=== PATIENT | male | born 1965 | race Caucasian/White ===

== ENCOUNTER 2018-12-08 12:49 | Emergency (ER) | payer OTHER ==
[~2018-12-08] VITALS: Ht 177.8 cm; Wt 92.1 kg
[2018-12-08 17:08] VITALS: BP 111/54
== END 2018-12-08 17:09 | disposition home or self-care (01) ==
LOC: ER 12:49
DX: S16.1XXA Strain of muscle, fascia and tendon at neck level, initial encounter (principal); G89.29 Other chronic pain; E03.9 Hypothyroidism, unspecified; Z87.891 Personal history of nicotine dependence; Z88.0 Allergy status to penicillin; Z88.2 Allergy status to sulfonamides; X58.XXXA Exposure to other specified factors, initial encounter; Y93.89 Activity, other specified; Y92.89 Other specified places as the place of occurrence of the external cause; Y99.8 Other external cause status

== ENCOUNTER 2019-01-30 02:03 | Emergency (ER) | payer OTHER ==
[~2019-01-30] VITALS: Ht 177.8 cm; Wt 97.5 kg
[2019-01-30] MEDS ORDERED: TYLENOL EXTRA500 MG PO (02:38)
[2019-01-30] MEDS ORDERED: ASPIR 8181 MG PO (02:38)
[2019-01-30] MEDS ORDERED: CELEXA10 MG PO (02:40)
[2019-01-30] MEDS ORDERED: BACLOFEN 10MG T10 MG PO (02:40)
[2019-01-30] MEDS ORDERED: BISACODYL SUPP10 MG RECTAL (02:40)
[2019-01-30] MEDS ORDERED: B12INJ IM (02:43)
[2019-01-30] MEDS ORDERED: COLACE100 MG PO (02:43)
[2019-01-30] MEDS ORDERED: GABAPENTIN 100100 MG PO (02:44)
[2019-01-30] MEDS ORDERED: LASIX 40 MG TAB40 M2 PO (02:45)
[2019-01-30] MEDS ORDERED: KETOCONAZOLE15 GM (02:45)
[2019-01-30] MEDS ORDERED: SYNTHROID25 MC1 PO (02:45)
[2019-01-30] MEDS ORDERED: MIRALAX17 GM PO (02:46)
[2019-01-30] MEDS ORDERED: MS CONTIN15 MG (02:48)
[2019-01-30] MEDS ORDERED: MOVANTIK25 MG PO (02:48)
[2019-01-30] MEDS ORDERED: UNICOMPLEX M TA1 TA1 PO (02:49)
[2019-01-30] MEDS ORDERED: MS CONTIN 30 MG30 MG PO (02:49)
[2019-01-30] MEDS ORDERED: KLOR-CON 1010 MEQ PO (02:50)
[2019-01-30] MEDS ORDERED: OXYBUTYNIN 5 MG5 M2 PO (02:50)
[2019-01-30] MEDS ORDERED: SENNA8.6 MG PO (02:50)
[2019-01-30] MEDS ORDERED: ZANAFLEX4 MG PO (02:51)
[2019-01-30 02:57] LABS: ABSOLUTE NEUTROPHILS 3.6 thou/uL (1.4-8.2); BASOPHILS 0.8 % (0.0-2.0); EOSINOPHILS 5.7 % (0.0-3.0); HEMATOCRIT 38.9 % (42.0-52.0); HEMOGLOBIN 13.1 gm/dL (14.0-18.0); LYMPHOCYTES 35.8 % (24.0-44.0); MCH 30.9 pg (26.0-34.0); MCHC 33.7 g/dL (28.0-37.0); MCV 91.6 fL (80.0-100.0); MONOCYTES 8.4 % (1.0-8.0); PLATELET COUNT 188 thou/uL (150-400); POLYS 49.3 % (36.0-66.0); RBC 4.25 mil/uL (4.50-6.00); RDW 13.8 % (10.5-14.5); WBC 7.3 thou/uL (4.0-11.0)
[2019-01-30 03:02] LABS: CALCIUM 9.3 mg/dL (8.5-10.1)
[2019-01-30 04:23] VITALS: BP 112/49
== END 2019-01-30 04:24 | disposition home or self-care (01) ==
LOC: ER 02:03
PROVIDERS: Student in an Organized Health Care Education/Training Program
DX: M62.461 Contracture of muscle, right lower leg (principal); G89.29 Other chronic pain; E03.9 Hypothyroidism, unspecified; Z88.0 Allergy status to penicillin; Z88.2 Allergy status to sulfonamides; Z87.891 Personal history of nicotine dependence

== ENCOUNTER 2019-03-14 18:36 | Emergency (ER) | payer OTHER ==
[~2019-03-14] VITALS: Ht 175.3 cm; Wt 99.8 kg
[~2019-03-14 18:36] MED LIST: ASPIR 8181 MG PO; B12INJ IM; BACLOFEN 10MG T10 MG PO; BISACODYL SUPP10 MG RECTAL; CELEXA10 MG PO; COLACE100 MG PO; GABAPENTIN 100100 MG PO; KETOCONAZOLE15 GM; KLOR-CON 1010 MEQ PO; LASIX 40 MG TAB40 M2 PO; MIRALAX17 GM PO; MOVANTIK25 MG PO; MS CONTIN 30 MG30 MG PO; MS CONTIN15 MG; OXYBUTYNIN 5 MG5 M2 PO; SENNA8.6 MG PO; SYNTHROID25 MC1 PO; TYLENOL EXTRA500 MG PO; UNICOMPLEX M TA1 TA1 PO; ZANAFLEX4 MG PO
[2019-03-14 19:03] LABS: ABSOLUTE NEUTROPHILS 5.8 thou/uL (1.4-8.2); BASOPHILS 1.3 % (0.0-2.0); EOSINOPHILS 3.2 % (0.0-3.0); HEMATOCRIT 43.8 % (42.0-52.0); HEMOGLOBIN 14.9 gm/dL (14.0-18.0); LYMPHOCYTES 33.3 % (24.0-44.0); MCH 31.4 pg (26.0-34.0); MCV 92.2 fL (80.0-100.0); MONOCYTES 8.8 % (1.0-8.0); PLATELET COUNT 233 thou/uL (150-400); POLYS 53.4 % (36.0-66.0); RBC 4.75 mil/uL (4.50-6.00); RDW 13.8 % (10.5-14.5); WBC 10.8 thou/uL (4.0-11.0)
[2019-03-14 19:09] LABS: ANION GAP 8 mmol/L (7-16); BUN 15 mg/dL (7-18); CALCIUM 9.5 mg/dL (8.5-10.1); CHLORIDE 101 mmol/L (98-107); CO2 29 mmol/L (21-32); CREATININE 1.1 mg/dL (0.7-1.3); GLUCOSE 108 mg/dL (74-106); POTASSIUM 4.4 mmol/L (3.5-5.1); SODIUM 138 mmol/L (136-145)
[2019-03-14 19:20] LABS: SGOT 23 U/L (15-37); SGPT 22 U/L (30-65); TOTAL BILIRUBIN 0.5 mg/dL (<0.1-1.0); TOTAL PROTEIN 8.6 g/dL (6.4-8.2); TROPONIN-I <0.06 ng/mL (<0.06)
[2019-03-14 22:52] VITALS: BP 95/51
--- NOTE | 2019-03-17 22:21 | EKG ---
[address] [place] [address] ELECTROCARDIOGRAM REPORT Name: GARY HOLBROOK [id number] ������������������ Admission: 03/14/19 ������������������ Attend Phys: Discharge: 03/14/19 ������������������ Date of : 65 Report #: [id number] ����������������������������������������������������������������� [id number] THIS REPORT FOR: //name// [facility] Test Date: 2019-03-14 Test Time: 19:02:00 Pat Name: GARY HOLBROOK Department: Room: Gender: Telecommunications Field Engineer: henri luz : 1965 Requested By: Melanie Barrow Order Number: [id number] MD: Daniel Guevara Measurements Intervals [place] Rate: 70 P: 21 WA: 164 QRS: -21 QRSD: 88 T: 13 QT: 399 QTc: 431 Interpretive Statements Sinus rhythm Borderline left axis deviation No previous ECG available for comparison Electronically Signed On 03-17-2019 22:20:53 CDT by Daniel Guevara [email or web address] ��������������������������������������������� <ELECTRONICALLY SIGNED> ���������������������������������������� By: Daniel Guevara MD ��������������������������������������������� 03/17/190 01 01 MD DEDRIKC David
== END 2019-03-14 22:53 | disposition home or self-care (01) ==
LOC: ER 18:36
PROVIDERS: Student in an Organized Health Care Education/Training Program
DX: R07.89 Other chest pain (principal); K59.00 Constipation, unspecified; Z88.0 Allergy status to penicillin; Z88.2 Allergy status to sulfonamides; E03.9 Hypothyroidism, unspecified; G89.29 Other chronic pain

== ENCOUNTER 2019-04-25 13:29 | Inpatient (IN) | payer OTHER ==
[~2019-04-25] VITALS: Ht 175.3 cm; Wt 88.1 kg
[2019-04-25 13:30] VITALS: BP 131/67
[2019-04-25 13:45] LABS: URINE BILIRUBIN NEGATIVE (Negative); URINE BLOOD 2+ (Negative); URINE CLARITY CLOUDY; URINE COLOR YELLOW; URINE GLUCOSE-RANDOM* NEGATIVE (Negative); URINE KETONES NEGATIVE (Negative); URINE LEUKOCYTES-REFLEX 3+ (Negative); URINE NITRITE-REFLEX POSITIVE (Negative); URINE PROTEIN (DIPSTICK) 2+ (Negative)
[2019-04-25 13:57] LABS: URINE WBC-REFLEX >25 Many /HPF (0-5)
[2019-04-25 13:58] LABS: BACTERIA-REFLEX >30 Many /HPF (None Seen); CASTS None Seen /LPF (None Seen); CRYSTALS None Seen /LPF (None Seen); SQUAMOUS None Seen /LPF (0-3); URINE RBC 3-10 Few /HPF (0-2)
[2019-04-25 14:09] LABS: HEMATOCRIT 37.1 % (42.0-52.0); HEMOGLOBIN 12.5 gm/dL (14.0-18.0); MCH 29.9 pg (26.0-34.0); MCHC 33.7 g/dL (28.0-37.0); MCV 88.8 fL (80.0-100.0); PLATELET COUNT 189 thou/uL (150-400); RBC 4.18 mil/uL (4.50-6.00); RDW 13.4 % (10.5-14.5); WBC 17.9 thou/uL (4.0-11.0)
[2019-04-25 14:16] LABS: CALCIUM 8.6 mg/dL (8.5-10.1); CREATININE 1.2 mg/dL (0.7-1.3); POTASSIUM 4.2 mmol/L (3.5-5.1)
[2019-04-25 14:22] LABS: ALBUMIN 2.8 g/dL (3.4-5.0); TOTAL PROTEIN 8.5 g/dL (6.4-8.2)
[2019-04-25 14:33] LABS: ABSOLUTE NEUTROPHILS 15.9 thou/uL (1.4-8.2)
[2019-04-25 15:44] VITALS: BP 105/59
[2019-04-25 15:46] VITALS: BP 112/59
[2019-04-25 16:09] VITALS: BP 98/44
[2019-04-25 16:57] VITALS: BP 81/42
[2019-04-25 20:06] VITALS: BP 97/49
[2019-04-26 00:46] VITALS: BP 103/48
--- NOTE | 2019-04-26 03:31 | NUR ---
PT CURRENTLY RESTING COMFORTABLE IN BED. REMAINS SR ON MONITOR. PT TOLERATING CL LIQUID DIET. PT HAS HAD NO VOMITING SINCE ADMIT. REMAINS ON RA. PT IV REMAINS OUT D/T INADVERTANT REMOVAL BY PT PER DR. TIRADO LEAVE OUT UNTIL IV TEAM CAN PLACE NEW PIV. PT WAS GIVEN AND SIGNED TELEMETRY RUNNER MONITORING SHEET. AM LABS TO BE REVIEWED.
[2019-04-26 04:36] VITALS: BP 96/44
[2019-04-26 06:59] LABS: HEMATOCRIT 34.6 % (42.0-52.0); HEMOGLOBIN 11.5 gm/dL (14.0-18.0); MCH 29.9 pg (26.0-34.0); MCHC 33.4 g/dL (28.0-37.0); MCV 89.6 fL (80.0-100.0); RBC 3.86 mil/uL (4.50-6.00); RDW 13.6 % (10.5-14.5); WBC 14.8 thou/uL (4.0-11.0)
[2019-04-26 07:15] LABS: CALCIUM 8.6 mg/dL (8.5-10.1); CREATININE 1.2 mg/dL (0.7-1.3); POTASSIUM 3.4 mmol/L (3.5-5.1)
[2019-04-26 07:47] VITALS: BP 109/50
--- NOTE | 2019-04-26 07:51 | EKG ---
[address] [place] [address] ELECTROCARDIOGRAM REPORT Name: HOLBROOKGARY Room #: 355-P ADM IN M.R.#: [id number] ������������������ Admission: 04/25/19 ������������������ Attend Phys: Adonis Castellanos MD Discharge: ������������������ Date of : 65 Report #: [id number] ����������������������������������������������������������������� [id number] THIS REPORT FOR: //name// [facility] ED Test Date: 2019-04-25 Test Time: 13:47:35 Pat Name: GARY HOLBROOK Department: Room: [facility] Gender: M Boiler/Chiller Technician: LISA : 1965 Requested By: Deven Flood Order Number: [id number] MD: Swapnil Mckeon Measurements Intervals [place] Rate: 66 P: 27 DE: 162 QRS: -9 QRSD: 90 T: 31 QT: 400 QTc: 420 Interpretive Statements Sinus rhythm Compared to ECG 03/14/2019 19:02:00 No significant changes Electronically Signed On 04-26-2019 7:51:46 CDT by Swapnil Mckeon [email or web address] ��������������������������������������������� <ELECTRONICALLY SIGNED> ���������������������������������������� By: Swapnil Mckeon MD, [facility] ��������������������������������������������� 04/26/19 0751 1347 1347 Swapnil Mckeon MD, FACC /EPI
--- NOTE | 2019-04-26 10:30 | NUR ---
ASSESSMENT: CM REVIEWED CHART AND MET WITH PATIENT AT THE BEDSIDE. PT IS A LTC RESIDENT AT [facility]. CM FAXED UPDATED CLINICAL TO [facility]. PT WAS ADMITTED WITH SEPSIS/COMPLICATED UTI. CM SPOKE WITH ADMISSIONS AT [facility] WHO STATES PATIENT IS NORMALLY IN BED OR HIS MOTORIZED WHEELCHAIR. PT HAS HX OF INCOMPLETE QUADRAPLEGIA DUE TO OLD CERVICAL SPINE CONDITION. CM SPOKE WITH PATIENTS BROTHER [facility] TO ALSO UPDATE HIM AND HE WOULD LIKE TO BE UPDATED AT TIME OF DISCHARGE BY BEING CONTACTED AT [phone]. CM SPOKE WITH ADMISSIONS AT [facility] WHO STATES THEY CAN ACCEPT HIM BACK ONCE MEDICALLY STABLE AND CAN ACCEPT OVER THE WEEKEND IF HE IS READY. IF PATIENT IS STABLE TO LEAVE OVER THE WEEKEND THEY STATE TO CALL [phone] AND ASK FOR CHARGE NURSE 400. IF STABLE TO DISCHARGE OVER THE WEEKEND FAX D/C ORDERS AND SUMMARY TO FAX:[phone]. TRANSPORTATION WILL NEED TO BE ARRANGE THROUGH [facility]: [phone].
--- NOTE | 2019-04-26 10:35 | NUR ---
Assess due to notification of wound, wound care has pending consult. Pt with quadraplegia, and resides at nursing facility. Admitted with UTI, renal and bladder stones. Nauseated at admit, nursing reports no emesis. Pt was sleeping at time of visit and did not awaken upon questioning. Has 2 different recorded wts 200 vs 194 lb, with wt trends closest to 203 lb in past. On clear liquid diet. Takes arginaid at SD so will order this to start and follow for ability to advance diet with tolerance. Low nutrition risk
--- NOTE | 2019-04-26 12:04 | H ---
[facility] [place] [address] HISTORY AND PHYSICAL Name: GARY HOLBROOK Capri Room #: 355-P [facility] IN M.R.#: [id number] Admission: 04/25/19 ������������������ Attend Phys: Adonis Castellanos MD Discharge: ������������������ Date of : 65 Report #: [id number] THIS REPORT FOR: //name// CC: Adonis Castellanos DATE OF SERVICE: 04/25/2019 CHIEF COMPLAINT: Nausea and fever. HISTORY OF PRESENT ILLNESS: The patient is a 54-year-old gentleman, transferred from [facility] for evaluation of fever and nausea. He has a longstanding history of incomplete quadriplegia due to an old cervical spine condition and prior surgery, which is longstanding. He has a suprapubic catheter as a result of neurogenic bladder. In the last several days, he has had intermittent nausea. Today, he had vomiting and fever to 101. He was seen at [facility] ER earlier in the week for neck and extremity pain, but was stabilized and transferred back to the facility. He has had urinary tract infections in the past, but it has been a number of months since he has had any complications at the care facility. In recent weeks, he has had lab work and KUB at the facility that was unremarkable. The staff there provides all his care and has been monitoring and caring for his situation appropriately. PAST MEDICAL HISTORY: Chronic incomplete quadriplegia. He has some movement of his arms at the shoulder and elbow, but limited in the hands; chronic pain syndrome from neuropathic pain; neurogenic bladder with suprapubic catheter; hypothyroid. He reports a prior diagnosis at of a right-sided renal stone. PAST SURGICAL HISTORY: He has had cervical spine stabilization. FAMILY HISTORY: Noncontributory. SOCIAL HISTORY: No chronic alcohol or tobacco use. He has been living at [facility] for about the last year. Prior to that, he has been in various other nursing centers. ALLERGIES: PENICILLIN and SULFA. MEDICATIONS: Tylenol, aspirin, baclofen, Celexa, B12, gabapentin, Lasix, Levoxyl, MiraLax, morphine, Movantik, MS Contin, multivitamin, oxybutynin, potassium, Senokot, and Zanaflex. REVIEW OF SYSTEMS: He complains of being clammy. He complains of some nausea. He says he feels ill. Otherwise, no headache, chest pain, shortness of breath, diarrhea, dysuria, myalgias, syncope. OBJECTIVE: [facility] [address] [place] [address] HISTORY AND PHYSICAL Name: GARY HOLBROOK Room #: 355-P [facility] IN [facility]#: [id number] Admission: 04/25/19 ������������������ Attend Phys: Adonis Castellanos MD Discharge: ������������������ Date of : 65 Report #: [id number] VITAL SIGNS: Temperature 37.9, pulse 55, respirations 15, blood pressure 131/67, O2 sat 96% on room air. GENERAL: He is awake and alert, in no distress. HEAD AND NECK: Unremarkable. LUNGS: Clear. HEART: Regular. ABDOMEN: Soft, normoactive bowel sounds. No rebound or guarding. Suprapubic catheter in place. EXTREMITIES: No cyanosis, clubbing or edema. He has contractures at the hips and knees bilaterally with limited movement of the legs. He has a spastic rigidity at the shoulders, elbows and hands. NEUROLOGIC: He is alert and oriented, recognizes me from the nursing center. LAB REVIEW: Creatinine was 1.2. Electrolytes unremarkable. Albumin 2.8. White count 17.9 with a left shift. Urinalysis had positive nitrites, 3+ leukocytes, many bacteria and white cells. DIAGNOSTIC STUDIES: Chest x-ray is unremarkable. CT of the abdomen without contrast shows extensive renal calculi with possible right staghorn calculus, bladder calculi, suprapubic catheter is noted and a calcified granuloma in the right lung base. ASSESSMENT: 1. Complicated urinary tract infection. 2. Right renal stones. 3. Bladder stones. 4. Neurogenic bladder. 5. Suprapubic catheter. 6. Incomplete chronic quadriplegia. 7. Chronic neuropathic pain syndrome. 8. Severe protein-calorie malnutrition with albumin of 2.8. PLAN: Pancultures have been obtained from ER and will continue on cefepime. IV fluids will be ordered overnight, his usual home medications and diet as tolerated. Lovenox for deep venous thrombosis prophylaxis. ��������������������������������������������� <ELECTRONICALLY SIGNED> ���������������������������������������� By: Adonis Castellanos MD ��������������������������������������������� 04/26/19 1204 1618 1715 Adonis Castellanos MD /nt
[2019-04-26 16:05] VITALS: BP 108/54
[2019-04-26 19:54] VITALS: BP 112/61
[2019-04-27 04:14] VITALS: BP 113/49
[2019-04-27 05:36] LABS: HEMATOCRIT 31.9 % (42.0-52.0); HEMOGLOBIN 10.7 gm/dL (14.0-18.0); MCH 30.1 pg (26.0-34.0); MCHC 33.6 g/dL (28.0-37.0); MCV 89.8 fL (80.0-100.0); RBC 3.56 mil/uL (4.50-6.00); RDW 13.5 % (10.5-14.5); WBC 9.1 thou/uL (4.0-11.0)
[2019-04-27 05:39] LABS: CALCIUM 8.2 mg/dL (8.5-10.1)
[2019-04-27 05:40] LABS: POTASSIUM 2.9 mmol/L (3.5-5.1)
--- NOTE | 2019-04-27 07:10 | NUR ---
ASSUMED CARE OF PT AT 1900. PT A&Ox4, COOPERATIVE BUT TEARFUL AT TIMES. C/O PAIN, MEDS GIVEN ORDERED W/ MINIMAL RELIEF. SB ON TELE, HR 40-50'S, ASYMPTOMATIC. 1050mL UOP W/ WHITISH SEDIMENT. TURNED Q 2 HRS, BOTTOM RED. WOUND ON L BUTT CHEEK COVERED W/ SMALL MEPILEX, INTACT. CREAM USED ON THE REST OF HIS BOTTOM. NO ACUTE DISTRESS. SLOW PROGRESSION TOWARDS POC GOALS.
[2019-04-27 07:12] VITALS: BP 102/59
--- NOTE | 2019-04-27 11:23 | HC ---
[facility] [place] [address] CONSULTATION Name: GARY HOLBROOK Capri Room #: 355-P [facility] IN ..#: [id number] Admission: 04/25/19 ������������������ Attend Phys: Adonis Castellanos MD Discharge: ������������������ Date of : 65 Report #: [id number] THIS REPORT FOR: //name// CC: Adonis Castellanos DATE OF SERVICE: 04/26/2019 REASON FOR CONSULTATION: I was asked to evaluate concerning Gram-negative bacteremia HISTORY OF PRESENT ILLNESS: The patient was a 54-year-old admitted on 04/25/2019 with a several day history of nausea, vomiting and fever. He has a history of incomplete quadriplegia following cervical spine disease. He has a neurogenic bladder and a suprapubic catheter in place. This has been changed out several weeks ago. Several days prior to his admission, he was at [facility] due to increased neck and extremity pain. Do not have details of that ER evaluation. He has had a history of recurrent urinary tract infections. On admission, he had temperature up to 37.9 degrees, hemodynamically has been stable. The nausea and vomiting has improved. He was placed on broad antibiotic coverage. He has had reasonable urine output. Denies any cough or sputum production. No chest pain. He has no sensation of abdominal pain. There has been no diarrhea. There has been no drainage around his suprapubic catheter site. He has had a chronic wound to his right ischium. He has neurogenic bowel and bladder. REVIEW OF SYSTEMS: A 10-point review of systems was otherwise negative other than what has been described above. ALLERGIES: PENICILLIN, SULFA. MEDICATIONS: As noted on his MAR which were reviewed. PAST MEDICAL HISTORY: Incomplete quadriplegia. He has movement of his arms and hands. He has chronic pain syndrome, neurogenic bladder with suprapubic catheter, hypothyroidism, right nephrolithiasis, and previous cervical spine stabilization procedure. FAMILY HISTORY: Noncontributory. SOCIAL HISTORY: Resides in a skilled nursing. No significant alcohol or tobacco use. PHYSICAL EXAMINATION: VITAL SIGNS: He is afebrile, hemodynamically stable. GENERAL: He is alert and cooperative and pleasant, in no acute distress. He has seborrheic dermatitis to his face. There is a right ischial wound which was [facility] [address] [place] [address] CONSULTATION Name: GARY HOLBROOK Room #: 355-[facility] IN .R.#: [id number] Admission: 04/25/19 ������������������ Attend Phys: Adonis Castellanos MD Discharge: ������������������ Date of : 65 Report #: [id number] a small and tunneled. No palpable adenopathy. Moderately obese. HEENT: Eyes, without scleral icterus. Mouth without mucositis. NECK: Supple. LUNGS: Clear. HEART: Regular, without murmur, gallop or rub. ABDOMEN: Mildly distended. No associated mass or hepatosplenomegaly. His suprapubic catheter site was without erythema or drainage. GENITALIA: External genitalia without mass or lesion. RECTAL: Examination not performed. He had right ischial sinus tract. EXTREMITIES: He had incomplete quadriplegia. He was able to move his upper extremities. NEUROLOGIC: Cranial nerves intact. Mood was normal. LABORATORY STUDIES: Hemoglobin 11.5, white count 14.8, platelet count 142,000. Sodium 137, potassium 3.4, bicarbonate 26, creatinine 1.2, alkaline phosphatase 126, AST 20, ALT 19, albumin at 2.8. Urinalysis with many bacteria and wbc's. Chest x-ray was clear. Blood cultures 1 of 2 showing Gram-negative bacilli. Urine culture is pending. CT scan of the abdomen with contrast showed right renal stone versus retained contrast. He had bladder calculi evident. Splenomegaly. There was no evidence to suggest ureteral obstruction, although to my view, he may have some dilatation of the renal pelvis. There was no inflammatory change around the right kidney. IMPRESSION: 1. Complicated urinary tract infection in the setting of neurogenic bladder and nephrolithiasis as well as bladder stones. 2. Incomplete quadriplegia. 3. Gram-negative sepsis due to urinary tract source. 4. Chronic pain syndrome. 5. Malnutrition. 6. Chronic ischial ulcer. RECOMMENDATION: We will continue broad antibiotic coverage to cover healthcare-associated Gram-negative organisms. We will repeat CT scan noncontrast for comparison to the previous study to assess stone burden in the right renal pelvis. May need Urology evaluation in the future. PLAN: Serial laboratory studies including BMP and CBC. Continue fluid resuscitation measures and will adjust his antibiotics pending cultures. ��������������������������������������������� <ELECTRONICALLY SIGNED> ���������������������������������������� By: Fam Jose MD ��������������������������������������������� 04/27/19 1123 1301 25 Fam Jose MD /nt
[2019-04-27 15:44] VITALS: BP 92/55
--- NOTE | 2019-04-27 19:22 | NUR ---
AAOX3 PLEASANT AND COOPERATIVE. REPORTS PAIN IN LOWER ABDOMEN. POOR APPETITE TODAY C/O NAUSEA - ZOFRAN GIVEN WITHOUT RELIEF. AIDA EPISODES DOWN TO 37 -NOTIFIED DR. MCLAIN OF ASSYMPTOMATIC BRADYCARDIA. PATIENT REMAINS ALERT AND ORIENTED DURING AIDA EPISODES. TURNED EVERY 2 HOURS. PRAFO BOOTS ON. IV LEFT HAND WITH FLUIDS INFUSING.
[2019-04-27 19:45] VITALS: BP 85/43
[2019-04-27 23:36] VITALS: BP 99/49
[2019-04-28 04:42] VITALS: BP 87/49
[2019-04-28 05:49] LABS: HEMATOCRIT 33.5 % (42.0-52.0); HEMOGLOBIN 11.2 gm/dL (14.0-18.0); MCH 30.1 pg (26.0-34.0); MCHC 33.4 g/dL (28.0-37.0); RBC 3.72 mil/uL (4.50-6.00); RDW 13.8 % (10.5-14.5); WBC 6.3 thou/uL (4.0-11.0)
--- NOTE | 2019-04-28 06:03 | NUR ---
PT REFUSED AM PO MEDICATION DUE TO NAUSEA PT REFUSED ZOFRAN STATING IT DO NOT WORK FOR HIM, CALL PLACED TO FOUNDRY WORKER GENERAL.
[2019-04-28 06:07] LABS: CALCIUM 8.7 mg/dL (8.5-10.1); POTASSIUM 3.6 mmol/L (3.5-5.1)
[2019-04-28 07:46] VITALS: BP 102/53
--- NOTE | 2019-04-28 11:13 | HC ---
[facility] [place] [address] CONSULTATION Name: GARY HOLBROOK Capri Room #: 355-P [facility] IN ..#: [id number] Admission: 04/25/19 ������������������ Attend Phys: Adonis Castellanos MD Discharge: ������������������ Date of : 65 Report #: [id number] THIS REPORT FOR: //name// CC: Adonis Castellanos DATE OF SERVICE: 04/27/2019 WOUND CARE CONSULTATION NOTE REASON FOR CONSULTATION: Chronic nonhealing ulcer of right ischium in a patient with quadriplegia and immobility. HISTORY OF PRESENT ILLNESS: The patient is a very pleasant 54-year-old gentleman and a good historian, who has a history of incomplete quadriplegia following cervical spine disease. He is admitted for evaluation of sepsis. The patient has neurogenic bladder with a suprapubic catheter in place and a history of renal calculi. The patient is being evaluated by Infectious Disease. Along with his immobility and quadriplegia, the patient has had an ulcer of his right buttock which has been present for years. He has been seen by home wound care, but has not had any formal evaluation of the wound in some time. ALLERGIES: PENICILLIN AND SULFA. MEDICATIONS: Noted in DEC. PAST MEDICAL HISTORY: Incomplete quadriplegia, chronic pain syndrome, neurogenic bladder, hypothyroidism, right nephrolithiasis. PAST SURGICAL HISTORY: Suprapubic catheter placement, cervical spine stabilization procedure. SOCIAL HISTORY: Does not smoke or drink. PHYSICAL EXAMINATION: GENERAL: Shows mildly obese, alert gentleman with quadriplegia. He is able to move his arms, some in helping him move. HEENT: Mucous membranes are moist. ABDOMEN: Soft. Suprapubic catheter is present. No lower extremity wounds. EXTREMITIES: Examination of the patient's right buttock shows a wound at the base of a concavity over the right ischium. Surface wound measures approximately 0.8 x 0.3 cm and when probed with a cotton-tipped applicator, is approximately 5 mm deep with mild drainage. There appears to be bone at the base. There is no surrounding redness, does not appear infected. IMPRESSION: 1. Quadriplegia. [facility] [address] [place] [address] CONSULTATION Name: GARY HOLBROOK Room #: 355-P [facility] IN M.R.#: [id number] Admission: 04/25/19 ������������������ Attend Phys: Adonis Castellanos MD Discharge: ������������������ Date of : 65 Report #: [id number] 2. Immobility. 3. Neurogenic bladder with suprapubic catheter. 4. Right ischial stage 4 pressure ulcers with chronic sinus, clinical, rule out osteomyelitis. PLAN: We will continue to pack the wound with silver alginate daily. We will order MRI of the pelvis to rule out osteomyelitis of the right ischium. If infection of the bone is present, then this may require surgical debridement with wider opening of the wound and attempt to get this to heal versus flap repair. I have ordered MRI. Infectious Disease following the patient. ��������������������������������������������� <ELECTRONICALLY SIGNED> ���������������������������������������� By: Jarod Pruitt MD ��������������������������������������������� 04/28/19 0955 1042 1209 Jarod Pruitt MD /nt
--- NOTE | 2019-04-28 16:27 | NUR ---
ASSUMED CARE OF PT AT APPROX 0700. PT IS ALERT AND ORIENTED X4, MONITORED ON TELE AND ABLE TO MAINTAIN 02 SAT >90 ON RA. COMPLAINS OF PAIN THAT IS CONTROLLED WITH SCHEDULED AND PRN MEDICATIONS. STATES THAT NAUSEA IS PRESENT BUT LESS, HAS NOT REQUESTED NAUSEA MEDICATION SO FAR THIS SHIFT. NO VOMITING. ASSESSMENT CHARTED. CASTILLO TO DD WITH ADEQUATE OUTPUT. DENIES CURRENT CONCERNS OR QUESTIONS. WILL CONTINUE TO MONITOR.
[2019-04-28 17:20] VITALS: BP 98/51
[2019-04-28 20:00] VITALS: BP 99/56
[2019-04-29 00:23] VITALS: BP 96/57
[2019-04-29 04:00] VITALS: BP 98/60
[2019-04-29 04:35] LABS: HEMATOCRIT 33.6 % (42.0-52.0); HEMOGLOBIN 11.2 gm/dL (14.0-18.0); MCH 30.3 pg (26.0-34.0); MCHC 33.5 g/dL (28.0-37.0); MCV 90.5 fL (80.0-100.0); RBC 3.71 mil/uL (4.50-6.00); RDW 13.9 % (10.5-14.5); WBC 6.7 thou/uL (4.0-11.0)
[2019-04-29 04:43] LABS: CALCIUM 8.5 mg/dL (8.5-10.1); CREATININE 0.9 mg/dL (0.7-1.3); POTASSIUM 3.9 mmol/L (3.5-5.1)
[2019-04-29 07:34] VITALS: BP 93/53
--- NOTE | 2019-04-29 13:32 | NUR ---
WOUND CARE FOLLOW UP; ROUNDING WITH DR BORIS JORDAN AND KENRYO ACOSTA. THE WOUNDS ARE STABLE TODAY WITH NO ODOR. THE PATIENT COMPLAINS OF GENERALIZED WEAKNESS. PLAN; CONTINUE CURRENT TREATMENT. DISCUSSED WITH RN
--- NOTE | 2019-04-29 15:34 | NUR ---
ON-GOING ASSESSMENT: CM REVIEWED CHART AND MET WITH PATIENT AT THE BEDSIDE. CM RECEIVED A TEXT FROM [facility] STATING THAT PATIENT HAD BEEN REQUESTING TO TRY ANOTHER FACILITY BUT THEY HAD NOT FOUND ONE TO ACCEPT HIM YET AND WONDERING IF CM COULD ASSIST WITH THAT. CM DISCUSSED WITH PATIENT THAT CM COULD TRY AND ATTEMPT TO FIND HIM A NEW FACILITY. PT IS HAVING MRI OF THE PELVIS DONE TODAY AND HAS STAGE 4 ULCER. PENDING PLANS PATIENT WOULD LIKELY BENEFIT FROM LTAC. CM DISCUSSED THIS WITH PATIENT AND HE IS WILLING TO TRY LTAC HE STATES HE DEFINATELY WANTS TO MAKE SURE HE IS BETTER BEFORE HE WOULD HAVE TO GO BACK TO [facility]. PT INTERSTED IN A REFERRAL TO [facility]. CM NOTIFIED LIASON AT [facility]. CM WILL CONTINUE TO FOLLOW TO ASSIST NEEDED.
--- NOTE | 2019-04-29 15:46 | NUR ---
PT ALERT AND ORIENTED TIMES FOUR. VSS, 99%RA, IVF INFUSING PER ORDER, SUPRAPUBIC CATH TO DD. DRESSING TO BOTTOM CHANGED. PT TURNED FREQUENTLY THIS SHIFT. SCHEDULED PAIN MEDICATIONS CONTROLLING PAIN WELL. PT TOLERATES MEDS AND MEALS. FAMILY FRIENDS AT BEDSIDE THIS AFTERNOON. PT SLOWLY PROGRESSING TOWRADS POC GOALS.
[2019-04-29 16:17] VITALS: BP 99/57
[2019-04-29 19:49] VITALS: BP 92/62
[2019-04-30 04:31] VITALS: BP 120/69
--- NOTE | 2019-04-30 04:52 | NUR ---
POC WITH IVF, IVPB ANTIBIOTICS, AND PAIN/NAUSEA MANAGEMENT. SCHEDULED ORAL PAIN MEDICATION AND 1X PAIN MEDICATION FOR BREAK THROUGH GIVEN. REDRESSED IV SITE. WOUNDS TO TWO LOCATIONS AND PRATHO BOOTS ON TO PROTECT HEELS. LOW LOSS AIR PUMP INSTALLED AND IS FUNCTIONING. PT A/0x4 WITH SOMEWHAT FLAT EFFECT. VSS. TELE IN PLACE, PT ALL SHIFT RUNS AIDA WITH LOWEST HR WAS 45. PT SUPRAPUBIC CATH LEAKS WHEN HE IS HAVING FLATULENCE, DUE TO PUSHING BY PATIENT? NO BM NOTED SINCE 04/26. PLAN IS TO FIND AN LTAC PER CM. HOURLY ROUNDING.
[2019-04-30 07:48] VITALS: BP 102/55
--- NOTE | 2019-04-30 14:05 | NUR ---
ON-GOING ASSESSMENT: CM REVIEWED CHART AND SPOKE WITH ATTENDING. PLANS ARE FOR PATIENT TO POSSIBLY DISCHARGE TO LTAC ON MONDAY. PT WANTED REFERRAL SENT TO [facility]. CM FAXED REFERRAL AND NOTIFIED [facility] LIASON OF POSSIBLE DISCHAGRE TOMORROW AND CM WAITING TO HEAR BACK IF THEY ACCEPT.
[2019-04-30 16:15] VITALS: BP 104/61
[2019-04-30 19:21] VITALS: BP 104/62
--- NOTE | 2019-04-30 19:49 | NUR ---
ASSUMED CARE OF PT AT 0700. PT HAS BEEN A&Ox4. AIDA ON TELE. PT COMPLAINED OF PAIN AT MORNING ASSESSMENT BUT NO OTHER COMPLAINTS OR PRN MEDICATIONS ADMINISTERED THROUGHOUT DAY. PT HAD ABDOMINAL XRAY TODAY D/T ONGOING N/V. PT HAD APPROX. 30ML EMESIS AFTER MORNING MED ADMINISTRATION BUT NO ADDITIONAL COMPLAINTS. PT HAD MULTIPLE VISITORS AT BEDSIDE TODAY. LIKELY CAUSE OF IMPROVED AFFECT AND OUTLOOK. Q2H TURNS PROVIDED PT WOULD ALLOW. WOUND CARE PROVIDED. PT LAST BM 04/26. PT REFUSED MIRALAX BUT STATED HE WOULD LIKE SUPPOSITORY. WHEN SUPPOSITORY WAS OFFERED THIS AFTERNOON PT DECLINED SAYING HE WOULD LIKE IT ON NIGHTSHIFT WHEN HE HAS MORE PRIVACY. PT SLOWLY PROGRESSING TOWARD POC GOALS. WILL CONTINUE TO MONITOR AND ASSESS.
[2019-05-01 03:31] VITALS: BP 116/54
[2019-05-01 04:38] LABS: CALCIUM 8.9 mg/dL (8.5-10.1); POTASSIUM 3.9 mmol/L (3.5-5.1)
--- NOTE | 2019-05-01 04:38 | NUR ---
RESUMED CARE FOR PT. PT REFUSING Q2 TURNS AND MIRALAX. AT 0400 PT STATES HE WANTS A SUPPOSITORY AGAIN. WILL OFFER ONE DURING 0600 MED PASS. VSS, WITH PT HEART RATE IN THE 45-60'S. FOLLOWING POC WITH IVPB AND PAIN CONTROL. HOURLY ROUNDING.
[2019-05-01 04:49] LABS: HEMOGLOBIN 12.2 gm/dL (14.0-18.0); MCH 30.3 pg (26.0-34.0); MCHC 33.8 g/dL (28.0-37.0); MCV 89.6 fL (80.0-100.0); RBC 4.02 mil/uL (4.50-6.00); RDW 13.4 % (10.5-14.5); WBC 7.3 thou/uL (4.0-11.0)
[2019-05-01 07:43] VITALS: BP 107/71
--- NOTE | 2019-05-01 10:35 | NUR ---
Assumed care of pt at 0700. Pt a&o x4. Q2h turn. Pt not compliant will all turns. Pain controlled. Dressings changed. IV antibiotics infusing. Awaiting transfer time for discharging to [facility]. Will continue to monitor and assist with needs.
[2019-05-01] MEDS ORDERED: ENOXAPARIN40 MG/0.1 SUBQ (12:45)
[2019-05-01] MEDS ORDERED: MORPHINE SULFAT15 M3 PO (12:46)
[2019-05-01] MEDS ORDERED: K-DUR 20 MEQ T20 MEQ PO (12:46)
[2019-05-01] MEDS ORDERED: PROTONIX 20 MG20 M1 PO (12:46)
[2019-05-01] MEDS ORDERED: MERREM1 GM IVPB (12:48)
--- NOTE | 2019-05-01 12:56 | NUR ---
ON-GOING ASSESSMENT: CM REVIEWED CHART AND MET WITH PATIENT AT THE BEDSIDE. PT STATING HE IS WANTING TO GO TO DUE TO HIS RIGHT RENAL CALCULUS THAT IS INFECTED AND REPORTS HIS FAMILY WANTS HIM TO GO ALSO AND TO SEE A UROLOGIST WHICH IS NOT AVAILABLE HERE AT [facility]. SAMUEL SPOKE WITH DR MCLAIN AFTER HE SPOKE WITH PATIENT AND REQUESTED A CALL TO TRANSFER CENTER. CM CONTACTED TRANSFER CENTER [phone] AND SPOKE WITH [facility]. CM FAXED INFORMATION TO [phone] AND WAITING TO HEAR BACK. CM ALSO HAD IMAGES CLOUDED OVER FROM RADIOLOGY PER REQUEST.
[2019-05-01 15:06] VITALS: BP 101/68
--- NOTE | 2019-05-01 15:51 | NUR ---
on-going assessment: samuel spoke with conference center coordinator at WHO STATES THEIR UROLOGIST IS NOT ACCEPTING PATIENT HE HAS REVIEWED RECORDS AND CAN BE WORKED UP OUTPATIENT. SAMUEL SPOKE WITH DR. MCLAIN WHO ALSO STATES IS NOT ACCEPTING PATIENT. PT IS NOW AGREEABLE TO GO TO [facility]. SAMUEL NOTIFIED LIASON AT [facility] AND FAXED D/C ORDERS TO THEM AND CONFIRMED THEY RECEIVED THEM. CHART COPY WAS ORDERED. AMBULANCE WAS ARRANGED THROUGH [facility] [phone] AND TRANSPORTATION HAS BEEN ARRANGED FOR 704. SAMUEL NOTIFIED [facility]AS[facility] AND PT. SAMUEL SPOKE WITH PATIENTS BROTHER TO UPDATE. PT REPORTS NO FURTHER NEEDS FROM CM.
[2019-05-01 19:37] VITALS: BP 100/68
== END 2019-05-01 20:07 | DRG 871 ==
LOC: ER 13:29 → 3W 14:42 → EROBS 14:42 → 3W 16:09
PROVIDERS: Emergency Medicine; ADMIT Internal Medicine Geriatric Medicine
DX: A41.51 Sepsis due to Escherichia coli [E. coli] (principal); L89.314 Pressure ulcer of right buttock, stage 4; E43 Unspecified severe protein-calorie malnutrition; G82.50 Quadriplegia, unspecified; N39.0 Urinary tract infection, site not specified; N20.0 Calculus of kidney; N31.9 Neuromuscular dysfunction of bladder, unspecified; L89.610 Pressure ulcer of right heel, unstageable; E03.9 Hypothyroidism, unspecified; N21.0 Calculus in bladder; G89.29 Other chronic pain; Z68.28 Body mass index [BMI] 28.0-28.9, adult; Z87.891 Personal history of nicotine dependence; Z79.82 Long term (current) use of aspirin; Z79.899 Other long term (current) drug therapy; Z88.0 Allergy status to penicillin; Z88.2 Allergy status to sulfonamides
CPT/HCPCS: 10879

== ENCOUNTER 2019-09-08 21:27 | Emergency (ER) | payer OTHER ==
[~2019-09-08] VITALS: Ht 175.3 cm; Wt 90.7 kg
[~2019-09-08 21:27] MED LIST changes: +ENOXAPARIN40 MG/0.1 SUBQ; +K-DUR 20 MEQ T20 MEQ PO; +MERREM1 GM IVPB; +MORPHINE SULFAT15 M3 PO; +PROTONIX 20 MG20 M1 PO
[2019-09-09 02:40] VITALS: BP 110/54
== END 2019-09-09 02:40 | disposition home or self-care (01) ==
LOC: ER 21:27
DX: S13.4XXA Sprain of ligaments of cervical spine, initial encounter (principal); G89.29 Other chronic pain; M54.5 Low back pain; Z88.0 Allergy status to penicillin; Z88.2 Allergy status to sulfonamides; Z87.891 Personal history of nicotine dependence; X58.XXXA Exposure to other specified factors, initial encounter; Y92.89 Other specified places as the place of occurrence of the external cause; Y93.89 Activity, other specified; Y99.8 Other external cause status

== ENCOUNTER 2019-10-03 12:33 | Emergency (ER) | payer OTHER ==
[~2019-10-03] VITALS: Ht 175.3 cm; Wt 95.3 kg
[2019-10-03 15:31] VITALS: BP 102/42
== END 2019-10-03 15:15 | disposition home or self-care (01) ==
LOC: ER 12:33
DX: M54.2 Cervicalgia (principal); G89.29 Other chronic pain; E03.9 Hypothyroidism, unspecified; Z87.891 Personal history of nicotine dependence; Z88.0 Allergy status to penicillin; Z88.2 Allergy status to sulfonamides; Z79.82 Long term (current) use of aspirin; Z79.899 Other long term (current) drug therapy

== ENCOUNTER 2019-10-15 08:37 | Emergency (ER) | payer OTHER ==
[~2019-10-15] VITALS: Ht 175.3 cm; Wt 90.7 kg
[2019-10-15] MEDS ORDERED: LEXAPRO 10 MG T10 M2 PO (08:50)
[2019-10-15] MEDS ORDERED: MELATONIN3 M1 PO (08:52)
[2019-10-15] MEDS ORDERED: MORPHINE SULFAT15 M4 PO (08:53)
[2019-10-15] MEDS ORDERED: LEVSIN0.125 MG PO (08:54)
[2019-10-15] MEDS ORDERED: ONDANSETRON ODT4 MG PO (08:55)
[2019-10-15] MEDS ORDERED: OXYBUTYNIN 5 MG5 M2 PO (08:56)
[2019-10-15 09:06] LABS: ABSOLUTE NEUTROPHILS 3.9 thou/uL (1.4-8.2); BASOPHILS 1.1 % (0.0-2.0); HEMATOCRIT 37.4 % (42.0-52.0); HEMOGLOBIN 12.4 gm/dL (14.0-18.0); LYMPHOCYTES 23.8 % (24.0-44.0); MCH 29.9 pg (26.0-34.0); MCHC 33.1 g/dL (28.0-37.0); MCV 90.4 fL (80.0-100.0); MONOCYTES 8.5 % (1.0-8.0); PLATELET COUNT 127 thou/uL (150-400); POLYS 61.6 % (36.0-66.0); RBC 4.14 mil/uL (4.50-6.00); RDW 15.4 % (10.5-14.5); WBC 6.3 thou/uL (4.0-11.0)
[2019-10-15 09:17] LABS: CALCIUM 9.3 mg/dL (8.5-10.1); POTASSIUM 4.1 mmol/L (3.5-5.1)
[2019-10-15 13:55] VITALS: BP 138/54
== END 2019-10-15 15:13 | disposition home or self-care (01) ==
LOC: ER 08:37
PROVIDERS: Emergency Medicine
DX: R51 Headache (principal); E03.9 Hypothyroidism, unspecified; Z87.891 Personal history of nicotine dependence; Z88.0 Allergy status to penicillin; Z88.2 Allergy status to sulfonamides

== ENCOUNTER 2019-10-20 03:50 | Emergency (ER) | payer OTHER ==
[~2019-10-20] VITALS: Ht 175.3 cm; Wt 93.0 kg
[~2019-10-20 03:50] MED LIST changes: +LEVSIN0.125 MG PO; +LEXAPRO 10 MG T10 M2 PO; +MELATONIN3 M1 PO; +MORPHINE SULFAT15 M4 PO; +ONDANSETRON ODT4 MG PO
[2019-10-20 04:41] LABS: HEMATOCRIT 36.9 % (42.0-52.0); HEMOGLOBIN 11.9 gm/dL (14.0-18.0); MCH 29.5 pg (26.0-34.0); MCHC 32.3 g/dL (28.0-37.0); MCV 91.1 fL (80.0-100.0); RBC 4.06 mil/uL (4.50-6.00); RDW 15.2 % (10.5-14.5); WBC 7.1 thou/uL (4.0-11.0)
[2019-10-20 04:57] LABS: CALCIUM 8.7 mg/dL (8.5-10.1); CREATININE 1.2 mg/dL (0.7-1.3); MAGNESIUM 1.9 mg/dL (1.8-2.4); POTASSIUM 4.1 mmol/L (3.5-5.1)
[2019-10-20] MEDS ORDERED: HYDROXYZINE HCL25 M2 PO (05:46)
[2019-10-20 06:44] VITALS: BP 105/49
== END 2019-10-20 06:46 ==
LOC: ER 03:50
PROVIDERS: Emergency Medicine
DX: F41.9 Anxiety disorder, unspecified (principal); R25.1 Tremor, unspecified; R51 Headache; E03.9 Hypothyroidism, unspecified; Z87.891 Personal history of nicotine dependence; Z88.0 Allergy status to penicillin; Z88.2 Allergy status to sulfonamides

== ENCOUNTER 2019-11-17 19:23 | Emergency (ER) | payer OTHER ==
[~2019-11-17] VITALS: Ht 177.8 cm; Wt 92.5 kg
[~2019-11-17 19:23] MED LIST changes: +HYDROXYZINE HCL25 M2 PO
[2019-11-17] MEDS ORDERED: [UNRECOGNIZED DRUG - OTHER] TOP (19:44)
[2019-11-17] MEDS ORDERED: LASIX 40 MG TAB40 MG PO (19:46)
[2019-11-17] MEDS ORDERED: LEVSIN0.125 MG PO (19:48)
[2019-11-17] MEDS ORDERED: MIRALAX17 GM PO (19:50)
[2019-11-17] MEDS ORDERED: MOVANTIK25 MG PO (19:52)
[2019-11-17] MEDS ORDERED: PROTONIX40 M2 PO (19:55)
[2019-11-18 00:52] VITALS: BP 96/44
== END 2019-11-18 00:56 ==
LOC: ER 19:23
DX: F69 Unspecified disorder of adult personality and behavior (principal); E03.9 Hypothyroidism, unspecified; G89.29 Other chronic pain; Z88.0 Allergy status to penicillin; Z88.2 Allergy status to sulfonamides; Z87.891 Personal history of nicotine dependence

== ENCOUNTER 2019-12-02 06:17 | Emergency (ER) | payer OTHER ==
[~2019-12-02] VITALS: Ht 175.3 cm; Wt 97.5 kg
[~2019-12-02 06:17] MED LIST changes: +LASIX 40 MG TAB40 MG PO; +PROTONIX40 M2 PO; +[UNRECOGNIZED DRUG - OTHER] TOP
[2019-12-02 07:43] LABS: ABSOLUTE NEUTROPHILS 4.9 thou/uL (1.4-8.2); BASOPHILS 0.8 % (0.0-2.0); HEMATOCRIT 41.5 % (42.0-52.0); HEMOGLOBIN 13.8 gm/dL (14.0-18.0); LYMPHOCYTES 28.5 % (24.0-44.0); MCH 30.5 pg (26.0-34.0); MCHC 33.3 g/dL (28.0-37.0); MCV 91.6 fL (80.0-100.0); MONOCYTES 8.2 % (1.0-8.0); PLATELET COUNT 164 thou/uL (150-400); POLYS 56.5 % (36.0-66.0); RBC 4.53 mil/uL (4.50-6.00); RDW 14.2 % (10.5-14.5); WBC 8.7 thou/uL (4.0-11.0)
[2019-12-02 08:01] LABS: CALCIUM 8.9 mg/dL (8.5-10.1); POTASSIUM 3.7 mmol/L (3.5-5.1)
[2019-12-02 10:25] VITALS: BP 92/45
== END 2019-12-02 10:43 | disposition home or self-care (01) ==
LOC: ER 06:17
PROVIDERS: Emergency Medicine
DX: R14.1 Gas pain (principal); E03.9 Hypothyroidism, unspecified; Z87.891 Personal history of nicotine dependence; Z88.0 Allergy status to penicillin; Z88.2 Allergy status to sulfonamides

== ENCOUNTER 2019-12-26 05:37 | Emergency (ER) | payer OTHER ==
[~2019-12-26] VITALS: Ht 175.3 cm; Wt 97.5 kg
[2019-12-26] MEDS ORDERED: MAPAP9.6 MG/0.3 PO (05:48)
[2019-12-26] MEDS ORDERED: VITAMIN B-121000 MC3 PO (05:50)
[2019-12-26] MEDS ORDERED: MOVANTIK25 MG PO (05:57)
[2019-12-26] MEDS ORDERED: NYAMYC15 GM TOP (05:58)
[2019-12-26 10:00] VITALS: BP 121/82
--- NOTE | 2019-12-27 09:29 | EKG ---
[facility] [place] [address] ELECTROCARDIOGRAM REPORT Name: GARY HOLBROOK Room #: DEP [facility]#: [id number] Admission: 12/26/19 Attend Phys: Discharge: 12/26/19 Date of : 65 Report #: [id number] THIS REPORT FOR: cc: Kirk Barone MD, Srinath MD Lundgren,Swapnil Hendrix MD [facility] ~ THIS REPORT FOR: //name// [facility] ED Test Date: 2019-12-26 Test Time: 08:18:14 Pat Name: GARY HOLBROOK Department: Room: Gender: [employer] Worker: : 1965 Requested By: Fam Mortensen Order Number: [id number] MD: Swapnil Mckeon Measurements Intervals [place] Rate: 75 P: 53 [place]: 210 QRS: -20 QRSD: 99 T: 20 QT: 422 QTc: 472 Interpretive Statements Sinus rhythm Prolonged [place] interval Borderline left axis deviation Poor R wave progression Compared to ECG 04/25/2019 13:47:35 First degree AV block now present Electronically Signed On 12-27-2019 9:28:32 NEWS SPECIALIST by Swapnil Mckeon [email or web address] <ELECTRONICALLY SIGNED> By: Swapnil Mckeon MD, [facility] 12/27/19 0928 7 7 Swapnil Mckeon MD, [facility] /EPI
== END 2019-12-26 10:00 ==
LOC: ER 05:37
DX: G82.20 Paraplegia, unspecified (principal); M54.5 Low back pain; M62.838 Other muscle spasm; G89.29 Other chronic pain; E03.9 Hypothyroidism, unspecified; G47.30 Sleep apnea, unspecified; Z87.891 Personal history of nicotine dependence; Z88.0 Allergy status to penicillin